=== PATIENT | female | born 1975 | race Caucasian/White ===

== ENCOUNTER → 2018-02-19 | Outpatient (CLI) | payer OTHER ==
[~2018-02-19] MED LIST: Desyrel50 MG; VALACYCLOVIR1000 MG PO
== END | disposition home or self-care (01) ==
LOC: LAB SHORT 15:28 → OLS 15:28
PROVIDERS: Obstetrics & Gynecology Gynecology
DX: Z12.4 Encounter for screening for malignant neoplasm of cervix (principal)
CPT/HCPCS: 87624; G0123

== ENCOUNTER → 2019-03-07 | Outpatient (CLI) | payer OTHER ==
[2019-03-10 13:06] LABS: HPV 16 Negative (Negative); HPV 18 Negative (Negative); HPV OTHER HR TYPES Positive (Negative)
== END | disposition home or self-care (01) ==
LOC: LAB 12:56 → LAB SHORT 12:56
PROVIDERS: Obstetrics & Gynecology Gynecology
DX: Z12.4 Encounter for screening for malignant neoplasm of cervix (principal)
CPT/HCPCS: 87624; G0123

== ENCOUNTER 2020-04-15 06:03 | Day surgery (SDC) | payer OTHER ==
[2020-04-13 09:05] LABS: BASOPHILS ABSOLUTE AUTO 0.02 K/mm3 (0.00-0.23); BASOPHILS PERCENT AUTO 1 % (0-2); EOSINOPHILS ABSOLUTE AUTO 0.11 K/mm3 (0.00-0.68); EOSINOPHILS PERCENT AUTO 3 % (0-6); Hematocrit 45.3 % (33.0-51.0); Hemoglobin 14.5 g/dL (11.5-16.0); IMMATURE GRAN ABSOLUTE AUTO 0.01 K/mm3 (0.00-0.10); IMMATURE GRAN PERCENT AUTO 0 % (0-1); LYMPHOCYTES PERCENT AUTO 28 % (21-46); MONOCYTES PERCENT AUTO 10 % (4-13); Mean Corpuscular HGB 30.9 pg (26.0-34.0); Mean Corpuscular Volume 97 fL (80-100); Mean Platelet Volume 11.4 fL (9.1-12.4); NEUTROPHILS ABSOLUTE AUTO 2.49 K/mm3 (1.96-9.15); NEUTROPHILS PERCENT AUTO 59 % (41-73); Platelet Count 252 K/mm3 (150-400); RDW Coefficient Variation 12.7 % (11.7-14.2); RDW Standard Deviation 45.2 fL (35.1-46.3); Red Blood Cell Count 4.69 M/mm3 (3.80-5.20); White Blood Cell Count 4.23 K/mm3 (4.00-11.30)
[~2020-04-15] VITALS: Ht 168 cm; Wt 60.1 kg
[~2020-04-15 06:03] MED LIST changes: -Desyrel50 MG; +TRAZ150T57 PO; +VALACYCLOVIR1000 M1 PO
--- NOTE | 2020-04-15 07:13 | NUR ---
History, Chart, Medications and Allergies reviewed before start of procedure.Patient confirms NPO status and agrees with scheduled surgery. Patient reports completing Chlorhexadine shower X2 prior to admission to hospital.Surgical site prepped with 2% Chlorhexidine cloth wipe.
--- NOTE | 2020-04-15 14:45 | NUR ---
PT ARRIVED TO UNIT AT APROX 1415 FROM PACU. PT TRANSFERED TO BED USING SLIDER SHEET. LAP SITES X'S 5 C/D/I OPEN TO AIR. PT C/O EYES IRRITATED, BILAT EDEMATAOUS, NO REDNESS NOTED. PT REPORTS PAIN 4/10 AT THIS TIME, TOTAL OF 200MCG FENT ADMINISTERED IN PACU.
--- NOTE | 2020-04-15 18:17 | NUR ---
SHIFT SUMMARY PT POD 0 CHILO LAVH. LAP SITES X'S 5 C/D/I. ABD SOFT, TENDER W/PALPATION. TOLERATING SMALL AMT CLEAR LIQUID, DENIES N/V. DUNNE PATENT, DRAINING CLEAR YELLOW URINE. PT MEDICATED FOR PAIN PER EMAR. C/O PAIN IN L EYE-EDEMA PRESENT BILAT EYES, NO OBVIOUS IRRITATION OR INJURY TO L EYE.
--- NOTE | 2020-04-15 20:00 | NUR ---
1944-DR. FRITZ NOTIFIED THAT PTS LEFT EYE IS STILL PAIN FULL.
--- NOTE | 2020-04-15 20:23 | NUR ---
SPOKE WITH PT RE: EYE PAIN. STATES ONLY LEFT EYE PAINFUL NOW. STATES FEELING LIKE IT HAS LITTLE SCRATCHES ON THE LATERAL PORTION OF THE SCLERA. PT STATES REALLY DAY WHEN SHE OPENS EYE. PT HAS NOTICABLE SWELLING TO EYE LIDS. ICE PACK GIVEN AND PT WAS ALSO GIVEN AN EYE PATCH FOR COMFORT. DID PLACE CALL OUT TO DR. HUNT FOR SOME POSSIBLE NUMBING EYE DROPS.
--- NOTE | 2020-04-15 21:00 | NUR ---
SPOKE WITH DR. HUNT REGARDING PAIN IN PATIENTS L EYE. RECOMMENDED NUMBING EYE DROPS. DR HUNT STATES HE WILL SPEAK WITH ANESTHESIA BEFORE WRITING ORDER.
--- NOTE | 2020-04-15 21:30 | NUR ---
PT CURRENTLY RESTING IN BED WITH EYE PATCH AND ICE PACK IN PLACE. REPORTS PAIN IS TOLERABLE WHEN EYE IS CLOSED. HOB ELEVATED PER ANESTHESIA RECOMMENDATION.
[2020-04-16 05:00] LABS: BASOPHILS ABSOLUTE AUTO 0.01 K/mm3 (0.00-0.23); BASOPHILS PERCENT AUTO 0 % (0-2); EOSINOPHILS ABSOLUTE AUTO 0.03 K/mm3 (0.00-0.68); EOSINOPHILS PERCENT AUTO 0 % (0-6); Hematocrit 38.3 % (33.0-51.0); Hemoglobin 12.5 g/dL (11.5-16.0); IMMATURE GRAN ABSOLUTE AUTO 0.02 K/mm3 (0.00-0.10); IMMATURE GRAN PERCENT AUTO 0 % (0-1); LYMPHOCYTES ABSOLUTE AUTO 1.18 K/mm3 (0.84-5.20); LYMPHOCYTES PERCENT AUTO 15 % (21-46); MONOCYTES ABSOLUTE AUTO 0.57 K/mm3 (0.16-1.47); MONOCYTES PERCENT AUTO 7 % (4-13); Mean Corpuscular HGB 31.4 pg (26.0-34.0); Mean Corpuscular HGB Conc 32.6 g/dL (31.5-36.5); Mean Corpuscular Volume 96 fL (80-100); Mean Platelet Volume 11.4 fL (9.1-12.4); NEUTROPHILS ABSOLUTE AUTO 5.93 K/mm3 (1.96-9.15); NEUTROPHILS PERCENT AUTO 77 % (41-73); Platelet Count 190 K/mm3 (150-400); RDW Coefficient Variation 12.6 % (11.7-14.2); RDW Standard Deviation 45.4 fL (35.1-46.3); Red Blood Cell Count 3.98 M/mm3 (3.80-5.20); White Blood Cell Count 7.74 K/mm3 (4.00-11.30)
--- NOTE | 2020-04-16 06:09 | NUR ---
SHIFT SUMMARY: PT POD #1 FOR ROBOTIC LAVH. 5 LAP SITES C/D/I WITH DERMABOND. BRUISING NOTED AROUND INCISION SITES. PAIN MANAGED WITH TORADOL AND TYLENOL. PT COMPLAINING OF LEFT EYE PAIN IN BEGINNING OF SHIFT. REPORTS THAT IT DAY AND FEELS LIKE IT HAS BEEN SCRATCHED. EDEMA NOTED TO BILATERAL EYELIDS. NO VISIBLE TRAUMA TO SCLERA OR CORNEA. PT GIVEN ICE PACK AND ADVISED TO KEEP HOB ELEVATED. PT REPORTS EYE IS FEELING BETTER THIS MORNING. PT ABLE TO AMBULATE TO BATHROOM THIS SHIFT. DUNNE TAKEN OUT AT APPROX 0540. WAITING FOR PT TO VOID. PLAN FOR POSSIBLE DISCHARGE TODAY.
--- NOTE | 2020-04-16 09:06 | NUR ---
ABD INCISIONS ARE CLOSED, NO REDNESS OF D/C NOTED FROM INCISION. PT AMBULATED ENTIRE LENGTH OF PITTMAN WITH EVEN STEADY GAIT. JADEN
[2020-04-16] MEDS ORDERED: IBUP800 PO (09:54)
[2020-04-16] MEDS ORDERED: DOCU100 PO (09:55)
[2020-04-16] MEDS ORDERED: Milk Of Ma400 MG/5 M PO (09:55)
[2020-04-16] MEDS ORDERED: Percocet 5-3251 EACH PO (09:56)
[2020-04-16] MEDS ORDERED: PROM25 (09:57)
[2020-04-16] MEDS ORDERED: SENN187 PO (09:57)
[2020-04-16] MEDS ORDERED: SIME80CH PO (09:58)
--- NOTE | 2020-04-16 11:15 | NUR ---
PT WAS TAKEN OUT OF HOSPITAL BY DISCHARGE VOLUNTEER. IVs WERE REMOVED AND PRESSURE DRESSED, IVs INTACT. PT EXPRESSED UNDERSTANDING OF DC TEACHING, PT DENIES FURTHER QUESTIONS.
== END 2020-04-16 10:48 | disposition home or self-care (01) ==
LOC: ORSCMMR 06:03 → ORD 07:30 → SURS 13:58 → ORSCMMR 13:58 → SURS 04-16 10:48 → ORSCMMR 04-16 10:48
PROVIDERS: Obstetrics & Gynecology
PROC: 8E0W4CZ Robotic Assisted Procedure of Trunk Region, Percutaneous Endoscopic Approach (ICD-10-PCS; principal; 2020-04-15 07:30)
PROC: 0UT94ZZ Resection of Uterus, Percutaneous Endoscopic Approach (ICD-10-PCS; principal; 2020-04-15 07:30)
PROC: 0UT74ZZ Resection of Bilateral Fallopian Tubes, Percutaneous Endoscopic Approach (ICD-10-PCS; principal; 2020-04-15 07:30)
DX: N92.0 Excessive and frequent menstruation with regular cycle (principal); N85.2 Hypertrophy of uterus; D25.9 Leiomyoma of uterus, unspecified; N94.6 Dysmenorrhea, unspecified; Z79.899 Other long term (current) drug therapy
CPT/HCPCS: 58573; S2900; 36415; 84702; 85025; 86850; 86900; 86901; 88307; A9270; J0690; J1100; J1885; J2250; J2370; J2405; J2704; J3010; J7120

== ENCOUNTER → 2020-09-22 | Outpatient (CLI) | payer OTHER ==
[~2020-09-22] MED LIST changes: +DOCU100 PO; +IBUP800 PO; +Milk Of Ma400 MG/5 M PO; +PROM25; +Percocet 5-3251 EACH PO; +SENN187 PO; +SIME80CH PO
== END | disposition home or self-care (01) ==
LOC: LAB EV 09:09 → LAB SHORT 09:09
DX: N39.0 Urinary tract infection, site not specified (principal)
CPT/HCPCS: 87077; 87086; 87186

== ENCOUNTER 2020-12-23 12:00 | Day surgery (SDC) | payer OTHER ==
[~2020-12-23] VITALS: Ht 165.1 cm; Wt 58.7 kg
== END 2020-12-23 13:40 | disposition home or self-care (01) ==
LOC: ORSCSDS 12:00
PROC: 0DB98ZX Excision of Duodenum, Via Natural or Artificial Opening Endoscopic, Diagnostic (ICD-10-PCS; principal; 2020-12-23)
PROC: 0DB68ZX Excision of Stomach, Via Natural or Artificial Opening Endoscopic, Diagnostic (ICD-10-PCS; principal; 2020-12-23)
DX: R10.13 Epigastric pain (principal); R68.81 Early satiety; R63.0 Anorexia; R11.0 Nausea; K29.70 Gastritis, unspecified, without bleeding; K57.30 Diverticulosis of large intestine without perforation or abscess without bleeding; Z79.899 Other long term (current) drug therapy
CPT/HCPCS: 88305; 88342; J2704; J7120

== ENCOUNTER → 2021-12-12 | Outpatient (CLI) | payer OTHER | END | disposition home or self-care (01) | LOC: LAB 15:47 → LAB SHORT 15:47 | DX: N39.0 Urinary tract infection, site not specified (principal) | CPT/HCPCS: 87077; 87086; 87186 ==

== ENCOUNTER 2022-07-27 07:51 | Day surgery (SDC) | payer OTHER ==
[~2022-07-27] VITALS: Ht 165.1 cm; Wt 58.7 kg
[2022-07-27] MEDS ORDERED: PROG100 (08:03)
[2022-07-27] MEDS ORDERED: VITAMIN D31000 UNI1 (08:03)
--- NOTE | 2022-07-27 08:25 | NUR ---
07/27/22 0825 Annita Washington TWO ATTEMPTS AT IV. FIRST ATTEMPT AT IV IN R HAND BY YARITZA UNSUCESSFUL. SECOND ATTEMPT AT IN IN R HAND BY YARITZA SUCWAYLONFUL.
== END 2022-07-27 10:37 | disposition home or self-care (01) ==
LOC: ORSCSDS 07:51
PROVIDERS: Internal Medicine Gastroenterology
PROC: 0DBH8ZX Excision of Cecum, Via Natural or Artificial Opening Endoscopic, Diagnostic (ICD-10-PCS; principal; 2022-07-27 09:00)
PROC: 0DBC8ZX Excision of Ileocecal Valve, Via Natural or Artificial Opening Endoscopic, Diagnostic (ICD-10-PCS; principal; 2022-07-27 09:00)
PROC: 0DBL8ZX Excision of Transverse Colon, Via Natural or Artificial Opening Endoscopic, Diagnostic (ICD-10-PCS; principal; 2022-07-27 09:00)
DX: Z12.11 Encounter for screening for malignant neoplasm of colon (principal); Z80.0 Family history of malignant neoplasm of digestive organs; D12.3 Benign neoplasm of transverse colon; D12.0 Benign neoplasm of cecum
CPT/HCPCS: 88305; J2704; J7120

== ENCOUNTER → 2023-09-21 | Outpatient (CLI) | payer OTHER ==
[~2023-09-21] MED LIST changes: +PROG100; +VITAMIN D31000 UNI1
== END | disposition home or self-care (01) ==
LOC: LAB SHORT 08:39 → LAB 08:39
DX: N39.0 Urinary tract infection, site not specified (principal)
CPT/HCPCS: 87077; 87086; 87186

== ENCOUNTER 2025-07-14 09:39 | Day surgery (SDC) | payer OTHER ==
[~2025-07-14] VITALS: Ht 165.1 cm; Wt 60.6 kg
[2025-07-14] MEDS ORDERED: EUTHYROX50 MC1 (09:54)
[2025-07-14] MEDS ORDERED: ESTRADIOL1 M1 (09:55)
[2025-07-14 12:36] VITALS: BP 104/65
== END 2025-07-14 12:57 | disposition home or self-care (01) ==
LOC: ORSCSDS 09:39
PROVIDERS: Internal Medicine Gastroenterology
PROC: 0DBK8ZX Excision of Ascending Colon, Via Natural or Artificial Opening Endoscopic, Diagnostic (ICD-10-PCS; principal; 2025-07-14 11:00)
DX: Z12.11 Encounter for screening for malignant neoplasm of colon (principal); D12.2 Benign neoplasm of ascending colon; Z86.0101 Personal history of adenomatous and serrated colon polyps; Z80.0 Family history of malignant neoplasm of digestive organs; Z83.719 Family history of colon polyps, unspecified
CPT/HCPCS: 88305; J2704; J7120